=== PATIENT | female | born 1980 | race Caucasian/White ===

== ENCOUNTER 2024-05-26 08:12 | Emergency (ER) | payer OTHER, SELFPAY ==
[2024-05-26 08:20] VITALS: BP 165/96
[2024-05-26 08:51] LABS: % Basophils 0.5 % (0-2); % Immature Granulocytes 0.3 % (0-0.5); % Lymphocytes 6.5 % (20.5-51.1); % Monocytes 6.1 % (1.7-9.3); % Neutrophils 84.6 % (42.2-75.2); Absolute Eosinophils 0.1 10^3/uL (0-0.7); Absolute Lymphocytes 0.4 10^3/uL (1.2-3.4); Absolute Monocytes 0.4 10^3/uL (0.1-0.6); Absolute Neutrophils 5.4 10^3/uL (1.4-6.5); Hematocrit 39.5 % (37.0-47.0); Hemoglobin 13.3 g/dL (12.0-16.0); Mean Corp Hgb Conc. 33.7 g/dL (33.0-37.0); Mean Corpuscular Hgb 28.1 pg (27.0-31.0); Mean Corpuscular Volume 83.5 fL (81.0-99.0); Mean Platelet Volume 10.5 fL (7.4-10.4); Nucleated Red Blood Cells % 0 %; Platelet Count 203 10^3/uL (130-400); Red Blood Cell Count 4.73 10^6/uL (4.20-5.40); Red Cell Dist. Width 13.3 % (11.5-14.5); White Blood Cell Count 6.4 10^3/uL (4.8-10.8)
[2024-05-26 09:10] LABS: ALT (SGPT) 32 U/L (0-35); AST (SGOT) 27 U/L (14-36); Albumin 4.7 g/dl (3.5-5.0); Alkaline Phosphatase 103 U/L (38-126); Blood Urea Nitrogen 10 mg/dl (7-17); Calcium 9.4 mg/dl (8.4-10.2); Carbon Dioxide 24 mmol/L (22-30); Chloride 101 mmol/L (98-107); Glucose 114 mg/dl (70-99); Potassium 4.5 mmol/L (3.5-5.1); Sodium 137 mmol/L (135-145); Total Bilirubin 1.1 mg/dl (0.2-1.3); Total Protein 7.4 g/dl (6.3-8.2); eGFR > 60.00
[2024-05-26 09:20] LABS: COVID-19 Antigen Negative (Negative)
[2024-05-26 09:21] LABS: Troponin I < 0.012 ng/ml
[2024-05-26 10:27] VITALS: BP 150/102
[2024-05-26 10:42] VITALS: BP 150/102
[2024-05-26 11:00] VITALS: BP 146/77
--- NOTE | 2024-05-26 11:05 | ED.GENMED ---
History of Present Illness
General
Chief Complaint: Chest Pain
Time Seen by Provider: 05/26/24 10:18
History of Present Illness
History of Present Illness:
43-year-old female with history of high blood pressure presenting to the emergency department for chest pain. Patient reports she woke up from sleep around 7 AM this morning with chest pressure, described as a squeezing sensation. Does note family
history of heart issues. Denies known personal history of heart problems. Does note that yesterday she started to have some coughing, nonproductive. Denies any difficulty breathing. Denies any history of blood clot, recent surgery, recent
travel, exogenous estrogen. Denies abdominal pain or GI symptoms. Denies any fever. Pain has improved slightly since arrival to the hospital. Denies additional acute medical complaints
Past History
Past History
ED Past Medical History: Other (Chronic neck pain, RSD-neck, endometriosis, ovarian cysts, migraines)
ED Past Surgical History: Cholecystectomy, Gynecological (Laparoscopies for endometriosis) and Orthopedic (Arthroscopies to right knee)
Social History
Tobacco: Former smoker (Quit In October of 2014)
Alcohol: None
Drug: None
Personal:
Living: with family
Family History
Family History: Other (Noncontributory)
Phy Exam
Physical Exam
Physical Exam:
General: Well-appearing, no clinical signs of dehydration, nontoxic and in no acute distress
HEENT: protecting airway
Neck: appears supple
CV: Normal heart rate, regular rhythm
Resp: No accessory muscle use, no increased work of breathing, lungs clear to auscultation bilaterally
Abd: Soft and non-distended, no tenderness to palpation
Extremities: No deformities, no swelling, no erythema
Neuro: alert, no focal neurologic deficit
: deferred
Rectal: deferred
Psych: Normal affect
Skin: Intact
Scores
Heart Score for Chest Pain Patients
STEMI patient?: No
History: Slightly or Non-Suspicious
ECG: Normal
Age: </= 45 years
Risk Factors: 1 or 2 Risk Factors
Troponin: </= Normal Limit
Heart Score for Chest Pain Patients: 1
Heart Score Risk: 2.5% MACE over next 6 weeks
Course
Orders/Labs/Results
Orders:
Orders
05/26/24 08:15
ECG [Electrocardiogram (*1)] Urgent
Reason for Study: Chest Pain
EKG- Treatment ONCE
05/26/24 08:29
COVID-19 Antigen Urgent
Source: Nasal Swab
Complete Blood Count/With Diff Urgent
Comprehensive Metabolic Panel Urgent
Troponin I Urgent
Influenza A+B Rapid Molecular Urgent
CARLY Source: Nasal Swab
Specimen Description:
05/26/24 11:01
Electrocardiogram (*1) Urgent
Reason for Study: Chest Pain
EKG- Treatment ONCE
CR Chest - 2 Views Urgent
Comment:
Reason For Exam: cp, cough
05/26/24 11:18
D-Dimer Urgent
Troponin I Urgent
05/26/24 11:25
Acetaminophen [Tylenol] 1,000 mg PO NOW STA
Acetaminophen [Tylenol] 650 mg .ROUTE .STK-MED ONE
05/26/24 11:27
Acetaminophen [Tylenol] 650 mg PO NOW STA
Abnormal Lab Results
05/26/24
08:29
MPV 10.5 H fL
(7.4-10.4)
Absolute Lymphs (auto) 0.4 L 10^3/uL
(1.2-3.4)
Neutrophils % 84.6 H %
(42.2-75.2)
Lymphocytes % 6.5 L %
(20.5-51.1)
Glucose 114 H mg/dl
(70-99)
05/26/24 08:29
02/12/25 08:29
Vital Signs
Initial and Last Documented VS:
Initial Vital Signs
Temp Pulse Resp BP Pulse Ox
100.0 F 107 20 165/96 96
05/26/24 08:20 05/26/24 08:20 05/26/24 08:20 05/26/24 08:20 05/26/24 08:20
Last Documented Vital Signs
Temp Pulse Resp BP Pulse Ox
100.0 F 93 14 146/77 93
05/26/24 08:20 05/26/24 12:30 05/26/24 12:30 05/26/24 11:00 05/26/24 12:30
MDM/Problems Addressed
MDM/Problems Addressed:
43-year-old female with history of high blood pressure presenting to the emergency department for chest pressure. Vital signs on arrival are significant for high blood pressure, however patient notes she did not take her labetalol today. Patient
also slightly tachycardic.
On exam, patient is resting comfortably, no acute distress or discomfort. Benign cardiac and pulmonary exam. EKG reviewed, nonischemic. Lower suspicion for ACS at this time. Patient had troponin obtained prior to my assessment, undetectable, low
risk by heart score. Patient does note that she is been coughing, possible pleuritic component versus musculoskeletal strain. Viral swabs are negative. Will add on chest x-ray. Heart rate is slightly elevated, cannot satisfy PERC rule. Will add
on D-dimer.
12:40 - Second troponin is within normal limits. D-dimer within normal limits, without concern for PE at this time. Chest x-ray that acute cardiopulmonary disease. At this time again without concern for acute cardiac pathology. He will stable
for discharge with close interval follow-up with primary care doctor. Return precautions discussed and patient verbalized understanding
*EKG
Interpreted by ED Provider?: Yes
EKG Intrepretation Date: 05/26/24
EKG Intrepretation Time: 11:09
Interpretation: normal
Comparison EKG: no changes
Heart Rate: 93
Rate: normal
Rhythm: sinus and PVC's
[place]: normal axis
Interval: normal interval
QRS Pattern: normal QRS
Ischemia: no ischemia
*Critical Care Note
Total Time (30-74mins, 75-104mins- exclusive of procedures): Not Applicable
ED Attending Note
-
Portions of this chart may have been created with voice recognition software.� Occasional wrong word or��sound alike� substitutions may have occurred due to the inherent limitations of voice recognition software.
Discharge Plan
Departure
Prescriptions:
No Action
labetalol 200 MG tablet
100 mg PO BID
acetaminophen 325 MG tablet
650 mg PO Q4HPRN PRN (Reason: mild pain) 0RF
famotidine 10 mg Tablet
20 mg PO BID
Viactiv 500-100-40 mg-unit-mcg Tablet,Chewable
1 tab PO DAILY
Daily Multi 18-400 mg-mcg Tablet
1 tab PO DAILY
omeprazole 40 MG capsule,delayed release(DR/EC)
20 mg PO DAILY
Antifungal Toe Medication
1 dose topical DAILY
Patient Comments:
pt states she uses an antifungal medication on one of her toenails- pt unable to state name of medication.
Referrals:
Donna Ramirez DO [Family Provider] -
Interventions
Interventions:
*Risk Screen - Suicide Last Done: 05/26/24 08:20
ED- Fall Risk Assessment Last Done: 05/26/24 10:25
*ED COVID-19 Vaccine History Last Done: 05/26/24 10:43
ED- Cardiac Assessment Last Done: 05/26/24 10:25
Discharge Date and Time
Print Language: QATARI
[2024-05-26] MEDS: TYLENOL 650 MG PO (11:40)
[2024-05-26 12:01] LABS: Troponin I < 0.012 ng/ml
[2024-05-26 12:11] LABS: D-Dimer 0.43 ug/mlFEU (0.00-0.50)
== END 2024-05-26 13:13 | disposition home or self-care (01) ==
LOC: EMR 08:12
PROVIDERS: Student in an Organized Health Care Education/Training Program; EMERGENCY PHYSICIAN Student in an Organized Health Care Education/Training Program; FAMILY PHYSICIAN Family Medicine
DX: R07.89 Other chest pain (principal); Z79.899 Other long term (current) drug therapy; Z87.891 Personal history of nicotine dependence; Z90.49 Acquired absence of other specified parts of digestive tract; I10 Essential (primary) hypertension
CPT/HCPCS: 99285; 71046; 80053; 84484; 85025; 85379; 87502; 87811; 93005

== ENCOUNTER → 2024-08-18 07:27 | Outpatient (REF) | payer OTHER, SELFPAY | LOC: HWRCS 07:27 | PROVIDERS: ATTENDING PHYSICIAN Internal Medicine Cardiovascular Disease; FAMILY PHYSICIAN Family Medicine | DX: R07.9 Chest pain, unspecified (principal) | CPT/HCPCS: 78452; 93017; A9500 ==